=== PATIENT | female | born 1945 | race Caucasian/White ===

== ENCOUNTER → 2016-04-30 | Day surgery (SDC) | payer MEDICARE, OTHER ==
[~2016-04-30] MED LIST: ASCO10006 PO; ASPI325T70 PO; CALC-98 PO; CETI10CA PO; CLOP75TA27 PO; EPHEDRINE PF IN SALINE 50 MG/5 ML DISP.SYRIN. IV ONE; ESTR1TAB15 PO; FENTANYL PF 100 MCG/2 ML VIAL. IV PRN; HYDR12.53 PO; HYDROMORPHONE 2 MG/ML VIAL. IV PRN; IV RINGERS,LACTATED 1000ML 1,000 ML IV SCH; LABE100T3 PO; LEVO175T5 PO; LIDOCAINE 1% 1 ML SYRINGE. ID PRN; LIDOCAINE 2% PF Vial for OR 5 ML VIAL. ONE; LOVA20TA2 PO; MELO-150 PO; MORPHINE SULFATE 2 MG/ML DISP.SYRIN. IV PRN; NIAC500C6 PO; NIFE30TA2 PO; ONDANSETRON PF 4 MG/2 ML VIAL. IV PRN; PROCHLORPERAZINE 10 MG/2 ML VIAL. IV PRN; PROPOFOL 40 ML IV ONE; SUCR1TAB PO; VITA1CAP PO
[2016-04-30 08:05] VITALS: BP 144/77
--- NOTE | 2016-05-03 06:00 | HP ---
ADMIT DATE: 04/30/2016 REFERRING PHYSICIAN: Dr. Jr Strong. HISTORY OF PRESENT ILLNESS: This is a 70-year-old female whose past medical history is significant for hypertension, hypothyroidism, osteoarthrosis, history of colon polyps, asthma, seen for persistent diarrhea. She has been treated for C. diff. She still occasionally has loose frequent stools, which are nonbloody in nature. With continued symptoms, she requests additional evaluation. PAST MEDICAL HISTORY: Significant for hypertension, rheumatic fever, asthma, hypothyroidism. ALLERGIES: INCLUDE PENICILLIN, SULFA, CEPHALEXIN. MEDICATIONS: Include ascorbic acid, calcium, Zyrtec, Plavix, estradiol, hydrochlorothiazide, labetalol, levothyroxine, lovastatin, meloxicam, vitamin D. PAST SURGICAL HISTORY: She had joint replacement and hysterectomy. REVIEW OF SYSTEMS: Per records. PHYSICAL EXAMINATION: GENERAL: Reveals a well-nourished, well-developed female, who is alert and cooperative, in no acute distress. VITAL SIGNS: Afebrile, pulse is 75, respiratory rate is 18, blood pressure is 140/70. HEENT: Reveals normocephalic, atraumatic head. Pupils and extraocular muscles not tested. Sclerae anicteric. NECK: Supple. LUNGS: Clear. CARDIOVASCULAR: Reveals S1, S2 without S3, S4 or appreciable murmur. ABDOMEN: Reveals a soft abdomen with normal bowel sounds, without appreciable hepatosplenomegaly. EXTREMITIES: Reveals no cyanosis, clubbing or edema. IMPRESSION: Diarrhea with a history of colon polyps. Surveillance exam was recommended at this time. Risks and benefits of procedure including the risk of perforation have been discussed and the patient is willing to proceed at this time. I would like to thank Dr. Strong for allowing us to consult and participate in the patient's care. ENA MEDRANO MD DR: AGUSTÍN/josefina JOB#: [id number] / [id number] Dr. Jr Knutson
== END | disposition home or self-care (01) ==
LOC: ENDOS 05:58
PROVIDERS: ATTEND Internal Medicine Gastroenterology
DX: K64.1 Second degree hemorrhoids (principal); I10 Essential (primary) hypertension; J45.909 Unspecified asthma, uncomplicated; K21.9 Gastro-esophageal reflux disease without esophagitis; M19.90 Unspecified osteoarthritis, unspecified site; E03.9 Hypothyroidism, unspecified; E16.2 Hypoglycemia, unspecified; F41.9 Anxiety disorder, unspecified; D64.9 Anemia, unspecified; Z90.710 Acquired absence of both cervix and uterus; Z87.39 Personal history of other diseases of the musculoskeletal system and connective tissue; Z90.49 Acquired absence of other specified parts of digestive tract; Z87.891 Personal history of nicotine dependence
CPT/HCPCS: 45378; J2704

== ENCOUNTER → 2016-11-04 | Outpatient (CLI) | payer MEDICARE, OTHER ==
[2016-04-30 08:05] VITALS: BP 144/77
[~2016-11-04] MED LIST changes: +ASCO100020 PO; -ASCO10006 PO; -CLOP75TA27 PO; +CLOP75TA57 PO; -EPHEDRINE PF IN SALINE 50 MG/5 ML DISP.SYRIN. IV ONE; -FENTANYL PF 100 MCG/2 ML VIAL. IV PRN; -HYDROMORPHONE 2 MG/ML VIAL. IV PRN; -IV RINGERS,LACTATED 1000ML 1,000 ML IV SCH; -LIDOCAINE 1% 1 ML SYRINGE. ID PRN; -LIDOCAINE 2% PF Vial for OR 5 ML VIAL. ONE; -MELO-150 PO; +MELO15TA23 PO; -MORPHINE SULFATE 2 MG/ML DISP.SYRIN. IV PRN; -ONDANSETRON PF 4 MG/2 ML VIAL. IV PRN; -PROCHLORPERAZINE 10 MG/2 ML VIAL. IV PRN; -PROPOFOL 40 ML IV ONE
--- NOTE | 2016-11-10 15:11 | SLEEP ---
DATE OF STUDY: 11/04/2016 HOME SLEEP STUDY REFERRING PHYSICIAN: Dr. Jr Strong. The patient is 71 years old who weighs 159 pounds with a BMI of 30. The patient's Loraine score was 7. Home sleep study was performed by [facility]. Total recording time was 573 minutes. During the night study, the patient had no central apneas, 43 mixed apneas and 74 obstructive apneas. The patient's apnea-hypopnea index was 13 per hour, supine index 14 per hour. Review of nocturnal oximetry study revealed an average oxygen saturation of 94% with lowest of 86%. Only 1.2 minutes were spent in oxygen saturation less than 90%. IMPRESSION: 1. Mild sleep apnea-hypopnea syndrome with an apnea-hypopnea index of 13 per hour. RECOMMENDATIONS: 1. The patient will benefit from continuous positive airway pressure titration. Alternate treatment options would include oral appliance as recommended by the dentist. 2. Avoid [employer] depressants. 3. Caution regarding driving until symptoms of sleep apnea resolve with the above recommendations. RAFAEL DAS MD DR: DORIE/josefina JOB#: [id number] / [id number] RANDEE
== END | disposition home or self-care (01) ==
LOC: RT 08:11
PROVIDERS: ATTEND Physician Assistant Medical
DX: G47.33 Obstructive sleep apnea (adult) (pediatric) (principal)
CPT/HCPCS: G0399

== ENCOUNTER 2017-06-11 15:02 | Emergency (ER) | payer MEDICARE, OTHER ==
[2017-06-11] MEDS: HYDROcodone/APAP 5/325MG 1 TAB TABLET PO (15:59)
[2017-06-11] MEDS: DIPHTH,PERTUSS(ACELL),TET TOX 0.5 ML DISP.SYRIN. VAX IM (16:00)
== END 2017-06-11 16:06 | disposition home or self-care (01) ==
LOC: ER 16:06
DX: L03.317 Cellulitis of buttock (principal); L02.31 Cutaneous abscess of buttock; M19.90 Unspecified osteoarthritis, unspecified site; J45.909 Unspecified asthma, uncomplicated; K21.9 Gastro-esophageal reflux disease without esophagitis; I10 Essential (primary) hypertension; E03.9 Hypothyroidism, unspecified; Z96.643 Presence of artificial hip joint, bilateral; Z96.652 Presence of left artificial knee joint; Z88.1 Allergy status to other antibiotic agents; Z88.2 Allergy status to sulfonamides; Z88.0 Allergy status to penicillin; Z91.011 Allergy to milk products
CPT/HCPCS: 90471; 90715; 99283-25

== ENCOUNTER → 2017-08-05 | Outpatient (CLI) | payer MEDICARE | END | disposition home or self-care (01) | LOC: RT 18:27 | DX: G47.33 Obstructive sleep apnea (adult) (pediatric) (principal) | CPT/HCPCS: 95811 ==

== ENCOUNTER → 2017-10-19 | Outpatient (CLI) | payer MEDICARE ==
[2017-06-11 15:16] VITALS: BP 138/65
[~2017-10-19] MED LIST changes: +HYDR-971 PO; -LABE100T3 PO; +LABE100T5 PO; +LEVO500T59 PO
== END | disposition home or self-care (01) ==
LOC: EKG 09:16
PROVIDERS: ATTEND Physician Assistant Medical
DX: R00.2 Palpitations (principal); I10 Essential (primary) hypertension; E78.5 Hyperlipidemia, unspecified; E03.9 Hypothyroidism, unspecified; Z88.1 Allergy status to other antibiotic agents; Z86.2 Personal history of diseases of the blood and blood-forming organs and certain disorders involving the immune mechanism; Z96.652 Presence of left artificial knee joint; Z96.643 Presence of artificial hip joint, bilateral; Z87.891 Personal history of nicotine dependence; Z87.39 Personal history of other diseases of the musculoskeletal system and connective tissue; Z90.49 Acquired absence of other specified parts of digestive tract; Z90.710 Acquired absence of both cervix and uterus; Z91.011 Allergy to milk products; Z88.0 Allergy status to penicillin; Z88.2 Allergy status to sulfonamides; Z88.8 Allergy status to other drugs, medicaments and biological substances
CPT/HCPCS: 93225

== ENCOUNTER → 2018-04-14 | Outpatient (CLI) | payer MEDICARE ==
[2017-06-11 15:16] VITALS: BP 138/65
[~2018-04-14] MED LIST changes: +ALPR1TAB6 PO; +AMLO10TA8 PO; +CARV6.2511 PO; +CLOB15CR TP; +CYCL5TAB PO; +FLUT16SP NS; +FLUT9.9S NS; +GABA300C18 PO; +HYDR-3164 PO; -HYDR-971 PO; -HYDR12.53 PO; +HYDR12.575 PO; +LEVO125T5 PO; +MUPI22OI2 TP; +SPIR25TA5 PO
--- NOTE | 2018-04-14 21:09 | PAIN ---
DATE OF SERVICE: 04/14/2018 CHIEF COMPLAINT: Low back, bilateral lower extremity pain. HISTORY OF PRESENT ILLNESS: The patient is a 72-year-old female who presents with history of pain in the low back for about 4 years, into the lower extremities as well; radiating with walking, standing, changing positions; better with sitting or lying down. The patient reports pain is constant, sharp, stabbing, shooting, radiating; changes during the day; worse with activity, worse with standing; better with sitting or lying; but aching pain across the low back as well. The patient reports it awakens her from sleep about 2-3 times at night, can affect her bowel and bladder, but usually it is an urgency, not loss of continence. The patient reports it is difficult for her to walk and she is using a walker to ambulate at all times. The patient reports she has had physical therapy. She has had exercises that she is doing currently and she is currently doing some physical therapy, reports it has not decreased the pain to a significant extent. The patient did have MRI scan of the lumbar spine showing L3-L4 and L4-L5 with L3-L4 left foraminal and extraforaminal disk bulging and endplate osteophyte formation resulting in moderate narrowing of the inferior portion of the left neural foramen, mild right foraminal and extraforaminal disk bulging resulting in mild narrowing of the anterior inferior right neural foramen as well. The patient's L4-L5 shows moderate bilateral facet and ligamentum flavum hypertrophic changes, right foraminal and extraforaminal disk bulging resulting in moderate narrowing of the anterior inferior right neural foramen and left foraminal extraforaminal disk bulging resulting in mild narrowing of the anterior inferior left neural foramen. The patient rates her disability from 0-10, 10 being the worst as 9-10 with family and home responsibilities; 10 with recreation, social activity and occupation and 9 with self-care activities. The patient has tried Tylenol, which does decrease the pain; also is taking gabapentin 3 times a day, which decreases the pain to a mild extent, about 20% maybe on her estimation. The patient reports no loss of motor function, but significant fatigability of the bilateral lower extremities, right essentially equal to left with pain radiating into the lateral anterior thighs, anterior medial thighs, medial lower legs posterior calf and into the feet. PAST MEDICAL HISTORY: Significant for shortness of breath, hypertension, cardiovascular disease, headaches, incontinence in the past, arthritis, renal stents. PREVIOUS SURGERY: Include cataract extraction, renal stent placed in 2006, previous hysterectomy and a fatty cyst removed in 1965. CURRENT MEDICATIONS: Include calcium, vitamins, Zyrtec, Plavix, lovastatin, estradiol, hydrocodone, mupirocin, amlodipine, meloxicam, gabapentin, cyclobenzaprine, spironolactone, clobetasol, fluticasone, carvedilol, and Xanax. ALLERGIES: THE PATIENT IS ALLERGIC TO PENICILLIN, SULFA and KEFLEX and has DAIRY sensitivity. SOCIAL HISTORY: The patient does not drink alcohol; does not smoke; does not use any illegal, illicit or recreational drugs. She is , lives with her spouse; lives locally in [place], [place] and works as a daycare provider for infants. FAMILY HISTORY: Significant for diabetes, heart disease in her father and her sister and mother. REVIEW OF SYSTEMS: The patient's review of systems is positive for those items mentioned in history of present illness. All systems reviewed otherwise negative is complete, full and well documented on the patient's chart. PHYSICAL EXAMINATION: VITAL SIGNS: The patient's blood pressure is 138/101, pulse 74, respirations 18, temperature 97.6 degrees Fahrenheit, height is 5 feet, weight is 168 pounds. GENERAL: The patient is awake, alert, oriented, appropriate, very pleasant demeanor. HEENT: Shows normocephalic, atraumatic. Extraocular movements intact and symmetrical. Oral cavity: Mucous membranes moist and pink. Dentition is intact. NECK: Shows anterior throat supple without palpable lymphadenopathy noted. Swallow reflex is symmetrical. CHEST: Shows normal on inspection. Breath sounds are clear to auscultation bilaterally. HEART: Shows S1, S2 clear. No murmurs auscultated. ABDOMEN: Soft, obese, nontender, nondistended. No palpable organomegaly is noted. No rebound or guarding demonstrated. BACK: Shows spine grossly in the midline. Slight exaggeration of thoracic kyphosis, some minor flattening of lumbar lordotic curvature. Lumbar paraspinous muscle shows symmetrical on inspection; with palpation shows some moderate tenderness but diffusely in the upper, middle and lower distribution of the paraspinous muscles and equal bilaterally. No peripheral edema is noted. No atrophy, hypertrophy, no asymmetry. The patient has good rotational motion of lumbar spine, both laterally as well as extension and flexion without significant increase in pain. Lower extremities show deep tendon reflexes at 1+ in the patellar and tendo calcaneus tendons are equal. Motor exam is approximately 4 on a scale of 5, but symmetrical and strong with dorsiflexion, extension, quadriceps and hamstring flexion. Peripheral pulses are 1+ posterior tibia. No peripheral edema is noted in lower extremities. Lower extremities are warm and dry to touch, equal in color and appearance. Gaenslen's maneuvers and David's maneuvers are negative bilaterally as is straight leg raising bilaterally. The patient is able to stand, has difficulty rising from seated position as she is using a walker to ambulate. Does have a shuffling gait, does not appear to favor the right or left lower extremity significantly, but does have a shuffling gait with ambulation and again using a walker. The patient's skin shows warm and dry, good turgor. No edema. No sores, rashes or bruising. IMPRESSION: This is a 72-year-old female with: 1. Approximately 4-year history of low back pain, bilateral lower extremity pain in radicular fashion. 2. CT scan, lumbar scan, as noted. 3. Hypertension. 4. Shortness of breath with asthma. 5. Arthritis. PLAN: Options were discussed with the patient including conservative medical management, physical therapy, interventional techniques. She would like to proceed with interventional techniques. We will check with her prescribing physician regarding holding her Plavix for 7 days. If this is deemed safe and acceptable, we will have her hold this and then return for lumbar epidural steroid injection at that time. In the meantime, the patient will continue doing strengthening and stretching exercises that she can do with exercise as tolerated and we will wait for clearance on holding Plavix and if this is approved, we will proceed with lumbar epidural steroid injection at that time. TIANNA GEIGER MD DR: RONNELL/josefina JOB#: [id number] / [id number] DINORA Okeefe MD
== END | disposition home or self-care (01) ==
LOC: PNCL 08:29
PROVIDERS: ATTEND Anesthesiology
DX: M54.16 Radiculopathy, lumbar region (principal); M79.604 Pain in right leg; M79.605 Pain in left leg; I10 Essential (primary) hypertension; J45.909 Unspecified asthma, uncomplicated; M19.90 Unspecified osteoarthritis, unspecified site
CPT/HCPCS: G0463

== ENCOUNTER → 2018-04-26 | Outpatient (CLI) | payer MEDICARE ==
[2017-06-11 15:16] VITALS: BP 138/65
[~2018-04-26] MED LIST changes: +IOHEXOL 180 MG/ML 10 ML VIAL. ONE; +methylPREDNISolone ACETATE 40 MG/ML VIAL. ONE; +methylPREDNISolone ACETATE 80 MG/ML VIAL. ONE
--- NOTE | 2018-04-26 12:21 | PAIN ---
DATE OF SERVICE: 04/26/2018 PROGRESS NOTE FOR PAIN CLINIC DIAGNOSES: Lumbar radiculopathy with lumbar degenerative disk disease. HISTORY OF PRESENT ILLNESS: The patient is a 72-year-old female who returns for followup status post initial evaluation and clearance to hold her Plavix. She has acquired this, has been off it for over a week now with pain still in the low back and bilateral lower extremities as it was previously, posterior gluteus, posterolateral thigh, lateral anterior thigh, medial thighs, medial lower legs. The patient reports it is essentially unchanged, but again she has been off her Plavix, worse with standing, walking, changing positions, better with sitting or lying down, awakens her from sleep about every 6 hours. The patient rates the pain as a 10 on a scale of 10 at its worst, 9 on average and 8 at its least and is a 9 today. The patient reports it is shooting, cramping, radiating, becoming unbearable with standing and walking, again better with sitting or lying down. No new motor or sensory deficits, no new bowel or bladder incontinence. The patient is using a walker to ambulate at all times. PHYSICAL EXAMINATION: VITAL SIGNS: The patient's blood pressure is 125/79, pulse 75, respirations 18, temperature is 97.9 degrees Fahrenheit, height is 5 feet, weight is 166 pounds. GENERAL: The patient is awake, alert, oriented, appropriate, very pleasant demeanor. HEENT: Shows normocephalic, atraumatic. Extraocular movements are intact and symmetrical. Oral cavity shows mucous membranes are moist and pink. Dentition is intact. NECK: Shows anterior throat supple without palpable lymphadenopathy noted. Swallow reflex symmetrical. CHEST: Shows normal on inspection. Breath sounds clear to auscultation bilaterally. HEART: Shows S1, S2 clear. No murmurs auscultated. ABDOMEN: Soft, nontender, nondistended. No palpable organomegaly is noted. No rebound or guarding demonstrated. BACK: Shows spine grossly in the midline, normal appearing thoracic kyphosis, some minor flattening of lumbar lordotic curvature. Lumbar paraspinous muscle shows symmetrical on inspection, on palpation shows some moderate tenderness, but only diffusely without significant radiation. EXTREMITIES: The patient's lower extremities show deep tendon reflexes at 1+ in the patella and tendo calcaneus tendons. Motor exam is strong with 4 on a scale of 5, but equal and symmetrical on dorsiflexion, extension, quadriceps and hamstring flexion. Peripheral pulses are 1+. No peripheral edema is noted. PLAN: Options were discussed with the patient. The patient's old chart was reviewed as her current medication regimen updated. Current review of system is updated today as well. We will proceed with a lumbar epidural steroid injection today as she has been off her Plavix now for over a week. Risks were again discussed including, but not limited to bleeding, infection, possibility of epidural hematoma and subsequent neurologic compromise, dural puncture, headaches, spinal cord and/or nerve damage, side effects of steroid medication and poor results regarding pain control. The patient understands and wished to proceed. The patient will return to clinic in approximately 2 weeks for followup, was counseled as to return appointment, activity level and side effects to be aware of. DIAGNOSES: Lumbar radiculopathy with lumbar degenerative disk disease. PROCEDURE: Lumbar epidural steroid injection, translaminar approach at L4-L5 using C-arm fluoroscopic guidance under sterile prep and drape using local anesthetic. MEDICATION INJECTED: A total of 120 mg Depo-Medrol plus 10 mL of preservative-free normal saline and 2 mL of Isovue for contrast. CONDITION AT DISCHARGE: Stable. The patient tolerated the procedure well, had no complications. TIANNA GEIGER MD DR: RONNELL/josefina JOB#: [id number] / [id number]
== END | disposition home or self-care (01) ==
LOC: PNCL 08:56
PROVIDERS: ATTEND Anesthesiology
DX: M51.16 Intervertebral disc disorders with radiculopathy, lumbar region (principal); Z88.0 Allergy status to penicillin; Z88.2 Allergy status to sulfonamides; Z88.1 Allergy status to other antibiotic agents; Z91.011 Allergy to milk products
CPT/HCPCS: 62323; J1030; J1040; Q9965

== ENCOUNTER → 2018-05-22 | Outpatient (CLI) | payer MEDICARE ==
[2017-06-11 15:16] VITALS: BP 138/65
[~2018-05-22] MED LIST changes: +AZIT250T PO; +LEVO50TA5 PO
--- NOTE | 2018-05-22 14:29 | PAIN ---
DATE OF SERVICE: 05/22/2018 PROGRESS NOTE FOR PAIN CLINIC DIAGNOSIS: Lumbar radiculopathy with lumbar degenerative disk disease. HISTORY OF PRESENT ILLNESS: The patient is a 72-year-old female who returns for followup status post lumbar epidural steroid injection x 1. The patient reports she did very well with about a 50% improvement in the low back and primarily right greater than left lower extremity pain. She has been off her Plavix now for 7 days and would like to proceed with a second injection today as scheduled. The patient reports still increase in distance walking and doing better with changing positions, traveling in a car, doing household activities, sleeping better at night, but still occasionally it awakens her from sleep. The patient reports that her bowel and bladder control seemed to be better as well. The patient reports her pain is a 10 on a scale of 10 at its worst, average and an 8 at its least and is an 8 today. The patient reports it is cramping, sharp, tight, radiating into the lower extremities, again more on the right side in the lateral anterior thigh, anterior medial thigh, medial lower thigh and lower leg on the right side greater than the left, but present bilaterally. The patient reports no new motor or sensory deficits, no new bowel or bladder incontinence or other complaints. PHYSICAL EXAMINATION: VITAL SIGNS: The patient's blood pressure is 134/83, pulse 63, respirations 16, temperature is 98.2 degrees Fahrenheit. Weight is 172 pounds. GENERAL: The patient is awake, alert, oriented, appropriate, very pleasant demeanor. HEENT: Head shows normocephalic, atraumatic. Extraocular movements are intact and symmetrical. Oral cavity: Mucous membranes are moist and pink. Dentition is intact. NECK: Shows anterior throat supple without palpable lymphadenopathy noted. Swallow reflex is symmetrical. CHEST: Shows normal on inspection. Breath sounds are clear to auscultation bilaterally. HEART: Shows S1, S2 clear. No murmurs auscultated. ABDOMEN: Soft, nontender, nondistended. No palpable organomegaly is noted. No rebound or guarding demonstrated. BACK: Shows spine grossly in the midline. Normal appearing thoracic kyphosis and lumbar lordotic curvature. Lumbar paraspinous muscle shows symmetrical on inspection, on palpation shows some moderate tenderness diffusely in the low lumbar distribution, but only diffusely without radiation. EXTREMITIES: The patient's lower extremities show deep tendon reflexes at 1+ in the patellar and tendo calcaneus tendons are equal. Motor exam is strong with 4/5 dorsiflexion, extension as well as quadriceps and hamstring flexion and symmetrical. Peripheral pulses are 1+ posterior tibial. No peripheral edema is noted bilaterally. Options were discussed with the patient. The patient's old chart was reviewed as her current medication regimen updated. Current review of systems updated today as well. We will proceed with a second in the series of lumbar epidural steroid injection today with fluoroscopic guidance. Risks were again discussed including, but not limited to bleeding, infection, possibility of epidural hematoma, subsequent neurologic compromise, dural puncture, headaches, spinal cord and/or nerve damage, side effects of steroid medication and poor results regarding pain control. The patient understands and wished to proceed. The patient will return to the clinic in approximately 2 weeks for followup, was counseled on return appointment, activity level and side effects to be aware of. DIAGNOSIS: Lumbar radiculopathy with lumbar degenerative disk disease. PROCEDURE: Lumbar epidural steroid injection, translaminar approach at L4-L5 level using C-arm fluoroscopic guidance under sterile prep and drape using local anesthetic. MEDICATION INJECTED: A total of 120 mg Depo-Medrol plus 10 mL of preservative-free normal saline and 2 mL of Isovue for contrast. CONDITION AT DISCHARGE: Stable. The patient tolerated the procedure well, had no complications. TIANNA GEIGER MD DR: RONNELL/josefina JOB#: [id number] / [id number]
== END | disposition home or self-care (01) ==
LOC: PNCL 07:56
PROVIDERS: ATTEND Anesthesiology
DX: M51.16 Intervertebral disc disorders with radiculopathy, lumbar region (principal); Z88.0 Allergy status to penicillin; Z88.2 Allergy status to sulfonamides; Z88.1 Allergy status to other antibiotic agents; Z91.011 Allergy to milk products
CPT/HCPCS: 62323; J1030; J1040; Q9965

== ENCOUNTER 2018-06-04 15:54 | Emergency (ER) | payer MEDICARE ==
[~2018-06-04] VITALS: Ht 152.4 cm; Wt 76.2 kg
[~2018-06-04 15:54] MED LIST changes: -AZIT250T PO; -IOHEXOL 180 MG/ML 10 ML VIAL. ONE; -methylPREDNISolone ACETATE 40 MG/ML VIAL. ONE; -methylPREDNISolone ACETATE 80 MG/ML VIAL. ONE
[2018-06-04 16:00] VITALS: BP 150/93
[2018-06-04] MEDS ORDERED: AZIT250T PO (16:40)
--- NOTE | 2018-06-04 16:40 | PHYS DOC ---
Past Medical History Past Medical History: Arthritis, Asthma, GERD, Hypertension, Hypothyroid Additional Past Medical Histor: HYPERLIP.,OCCIPITAL NEURALGIA L SIDE, DJD, RENAL ART. STENOISIS,CPAP,PAIN Past Surgical History: Hip Replacement, Knee Replacement, Other Additional Past Surgical Histo: BILAT HIPS, LEFT KNEE Alcohol Use: None Drug Use: None Adult General Chief Complaint Chief Complaint: EARACHE/EAR PAIN [facility] Patient is a 72 year old female who presents to the emergency department with complaints of ear pain and sore throat started last night. 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 She denies any fever, cough, nausea, vomiting, diarrhea, abdominal pain, or difficulty hearing. She reports some sinus pressure and nasal congestion recently. Currently her pain is a 5/10 on the pain scale, there are no alleviating factors. Review of Systems Review of Systems Constitutional: Denies fever or chills [] Eyes: Denies changes HENT: See HPI Respiratory: Denies cough or shortness of breath [] Cardiovascular: No additional information not addressed in HPI [] GI: Denies abdominal pain, nausea, vomiting, or diarrhea [] Integument: Denies rash or skin lesions [] Neurologic: Denies headache Allergies Allergies Allergies Coded Allergies Type Severity Reaction Last Updated Verified Milk Containing Products Allergy Severe Shortness of Air 04/30/16 Yes Cephalexin Monohydrate Allergy Intermediate 04/30/16 Yes Penicillins Allergy Intermediate 04/30/16 Yes Sulfa (Sulfonamide Antibiotics) Allergy Intermediate 04/30/16 Yes Tetracyclines Allergy Intermediate 04/30/16 Yes Physical Exam Physical Exam Constitutional: Well developed, well nourished, no acute distress, non-toxic appearance. [] HENT: Normocephalic, atraumatic, bilateral external ears normal, left TM mild erythema with slight effusion, right TN normal, mild erythema of posterior pharynx, oropharynx moist, no oral exudates, nose normal. [] Eyes: conjunctiva normal, no discharge. [] Neck: Normal range of motion, no tenderness, supple, no stridor. [] Cardiovascular:Heart rate regular rhythm, no murmur [] Lungs & Thorax: Bilateral breath sounds clear to auscultation [] Skin: Warm, dry, no erythema, no rash. [] Neurologic: Alert and oriented X 3, no focal deficits noted. [] Psychologic: Affect normal, judgement normal, mood normal. [] EKG EKG [] Radiology/Procedures Radiology/Procedures [] Course & Med Decision Making Course & Med Decision Making Pertinent Labs and Imaging studies reviewed. (See chart for details) [] Dragon Disclaimer Dragon Disclaimer This electronic medical record was generated, in whole or in part, using a voice recognition dictation system. Departure Departure Impression: Primary Impression: Left otitis media with effusion Additional Impression: Sore throat Disposition: HOME, SELF-CARE Condition: STABLE Referrals: DINORA ANDREWS MD (PCP) Patient Instructions: Otitis Media, Adult, [id number] Additional Instructions: Fill prescription and take as directed. Tylenol as needed for pain. Follow up with your primary care doctor if symptoms persist, return to the ER if symptoms worsen. Scripts Azithromycin (ZITHROMAX) 250 Mg Tablet 1 PKG PO UD, #6 TAB 0 Refills Prov: MIGUELITO PRIETO APRN 06/04/18 Problem Qualifiers MIGUELITO PRIETO APRN Jun 04, 2018 16:40
== END 2018-06-04 16:49 | disposition home or self-care (01) ==
LOC: ER 15:54
DX: H65.92 Unspecified nonsuppurative otitis media, left ear (principal); J02.9 Acute pharyngitis, unspecified; I10 Essential (primary) hypertension; E03.9 Hypothyroidism, unspecified; K21.9 Gastro-esophageal reflux disease without esophagitis; J45.909 Unspecified asthma, uncomplicated; Z88.1 Allergy status to other antibiotic agents; Z88.0 Allergy status to penicillin; Z88.2 Allergy status to sulfonamides; Z91.011 Allergy to milk products
CPT/HCPCS: 87070; 99283

== ENCOUNTER → 2018-12-08 | Outpatient (CLI) | payer MEDICARE ==
[~2018-12-08] MED LIST changes: +AZIT250T PO; +IOHEXOL 240 MG/ML 50ML VIAL. PO ONE; +IOHEXOL 300 MG/ML 100ML VIAL. IV ONE
--- NOTE | 2018-12-08 17:04 | KCIC ---
Examination: CT ABD PELV W/ORAL IV CONTRAST History: Diffuse abdominal pain, changes in bowel habits Comparison/Correlation: None Findings: Axial images of the abdomen and pelvis were obtained following IV and oral contrast. Sagittal and coronal reformatted images were provided. Visualized lung bases are unremarkable other than a punctate nodule which is partially imaged at the right middle lobe in the subpleural location. Small hiatal hernia. Liver is unremarkable. Spleen is normal. Pancreas is unremarkable. The gallbladder is not identified. Right renal scarring is noted. Right renal lower pole cyst is present measuring up to 5.8 cm in diameter. No significant right collecting system distention. Lobular contour of the kidneys is notable. No left collecting system obstruction. Evaluation of the urinary bladder and ureterovesical junctions is very limited due to bilateral hip joint prostheses and significant associated streak artifact. No inflammatory changes about the cecum. No extraluminal gas. No bowel obstruction. No enlarged abdominal or pelvic lymph nodes. No ascites or pelvic free fluid. Marked calcific involvement of the abdominal aorta is evident. Bilateral main renal arterial stents are present. Calcific involvement of the origins of the celiac, superior mesenteric, and inferior mesenteric arteries is notable. Impression: No inflammatory findings identified to involve the bowel. Marked calcific involvement of the abdominal aorta and common iliac arteries. Fatty infiltration of the liver. PQRS Compliance Statement: One or more of the following individualized dose reduction techniques were utilized for this examination: 1. Automated exposure control 2. Adjustment of the mA and/or kV according to patient size 3. Use of iterative reconstruction technique Electronically signed by: Kyle Schneider MD (12/08/2018 5:01 PM) [facility]
== END | disposition home or self-care (01) ==
LOC: KCIC CT 09:19
PROVIDERS: ATTEND Internal Medicine Gastroenterology
DX: K44.9 Diaphragmatic hernia without obstruction or gangrene (principal); K76.0 Fatty (change of) liver, not elsewhere classified; N28.1 Cyst of kidney, acquired; R91.1 Solitary pulmonary nodule; I70.8 Atherosclerosis of other arteries; I70.0 Atherosclerosis of aorta; J45.909 Unspecified asthma, uncomplicated; I10 Essential (primary) hypertension; Z79.01 Long term (current) use of anticoagulants; Z87.891 Personal history of nicotine dependence; Z90.710 Acquired absence of both cervix and uterus
CPT/HCPCS: 74177; 82565; Q9966; Q9967

== ENCOUNTER → 2018-12-22 | Outpatient (CLI) | payer MEDICARE ==
[~2018-12-22] MED LIST changes: -IOHEXOL 240 MG/ML 50ML VIAL. PO ONE; -IOHEXOL 300 MG/ML 100ML VIAL. IV ONE
--- NOTE | 2018-12-22 08:25 | RAD ---
Examination: ABD PELVIS RETROPERITON DOPP History: Abdominal pain Comparison/Correlation: 12/08/2018 CT Abd and Pelvis with contrast Findings: Duplex abdominal ultrasound exam was performed. The proximal abdominal aortic peak systolic velocity is 84 cm/s. The mid to distal abdominal aorta is not visualized due to overlying bowel gas. Plaque is seen throughout the abdominal aorta, celiac artery, and superior mesenteric artery. Celiac artery peak systolic velocity of 363 cm/s is identified. Resistive index is 0.84. Superior mesenteric artery peak systolic velocity of 346 cm/s proximally is noted. Resistive index is 0.89. Mid superior mesenteric artery peak systolic velocity of 135 cm/s noted. Distal superior mesenteric artery peak systolic velocity of 126 cm/s identified. Inferior vena cava is only partially visualized and unremarkable. Hepatopedal hepatic arterial flow noted. 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 Significant calcific involvement of the abdominal aorta. Electronically signed by: Kyle Schneider MD (12/22/2018 8:22 AM) [facility]
== END | disposition home or self-care (01) ==
LOC: US 08:15
PROVIDERS: ATTEND Internal Medicine Gastroenterology
DX: K55.1 Chronic vascular disorders of intestine (principal); I70.0 Atherosclerosis of aorta; I77.4 Celiac artery compression syndrome
CPT/HCPCS: 76770

== ENCOUNTER → 2019-01-05 | Outpatient (CLI) | payer MEDICARE ==
--- NOTE | 2019-01-05 14:41 | RAD ---
MRI Lumbar Spine without contrast History: Spinal stenosis, intermittent claudication Technique: Multiplanar, multi sequential noncontrast MR imaging was performed of the lumbar spine. Comparison: None Findings: Lumbar vertebral body stature is maintained. There is negligible posterior subluxation L1 relative L2 and negligible anterior spondylolisthesis at L4-5. Conus terminates at L1-2. There is nonspecific mild edema of the posterior subcutaneous fat of the lower back. There is mild degenerative disc disease L1-2, L3-4, L4-5, mild disc desiccation at other levels. There is mild lumbar levoscoliosis. Not fully evaluated, there is a T2 hyperintense lesion of the right kidney at least 5 cm in size most likely a cyst. L1-L2: Neural foramina and the spinal canal are adequate. There is minimal facet degenerative change. L2-L3: This level was not included on the axial images. Neural foramina and spinal canal are adequate. L3-L4: There is negligible disc osteophyte complex. There is anterior annular tear. There is minimal facet degenerative change and buckling of the ligamentum flavum. Spinal canal is overall adequate. Neural foramina are adequate. L4-L5: There is moderate facet degenerative change, fluid in the facet articulations bilaterally. There is moderate buckling of the ligamentum flavum. There is negligible disc osteophyte complex. Combination of findings results in mild to moderate spinal stenosis, left greater than right lateral recess stenosis. There is some preserved subarachnoid space. There is very mild posterior narrowing of the left neural foramen, right neural foramen not significantly narrowed. L5-S1: Spinal canal and neural foramina are adequate. There is moderate right and mild left facet hypertrophic change and mild buckling of the ligamentum flavum. Impression: 1. There is mild to moderate spinal stenosis with left greater than right lateral recess stenosis at L4-5. There is mild narrowing of the left L4-5 neural foramen. There is mild degenerative disc disease greatest L1-2, L3-4, and L4-5. There is negligible anterior spondylolisthesis at L4-5 and negligible posterior subluxation L1 relative to L2. There is mild lumbar levoscoliosis. 2. Not fully evaluated, T2 hyperintense lesion of the right kidney is most likely a cyst. Electronically signed by: Richie Cronin MD (01/05/2019 2:38 PM) [facility]
== END | disposition home or self-care (01) ==
LOC: MRI 13:08
PROVIDERS: ATTEND Internal Medicine Gastroenterology
DX: M43.16 Spondylolisthesis, lumbar region (principal); M48.061 Spinal stenosis, lumbar region without neurogenic claudication; M51.36 Other intervertebral disc degeneration, lumbar region; M25.78 Osteophyte, vertebrae
CPT/HCPCS: 72148

== ENCOUNTER → 2019-02-07 | Outpatient (CLI) | payer MEDICARE ==
--- NOTE | 2019-02-07 13:20 | RAD ---
EXAM: Lumbar spine, flexion and extension; lumbar spine, single view. HISTORY: Pain. FINDINGS: Lateral neutral, flexion and extension views of the lumbar spine are obtained. There is minimal grade 1 anterolisthesis of L4 and L5 which increases with flexion, measuring approximately 5 mm. No additional listhesis is seen. There is mild endplate remodeling at multiple levels. There is slight disc space narrowing predominantly at L4-L5. There is facet arthropathy at multiple levels. There are bilateral hip arthroplasties. There are bilateral renal artery stents. There is aortic and aortic branch vessel atherosclerosis. Lateral neutral, flexion and extension views of the lumbar spine are obtained. There is minimal grade 1 anterolisthesis of L4 and L5 which increases with flexion, measuring approximately IMPRESSION: 1. Grade 1 anterolisthesis of L4 and L5 which increases with flexion. 2. Multilevel degenerative change, primarily at L4-L5. Electronically signed by: Mayela Louis MD (02/07/2019 1:17 PM) [id number]
== END | disposition home or self-care (01) ==
LOC: RAD 09:06
PROVIDERS: ATTEND Neurological Surgery
DX: M43.16 Spondylolisthesis, lumbar region (principal); M48.061 Spinal stenosis, lumbar region without neurogenic claudication; M47.816 Spondylosis without myelopathy or radiculopathy, lumbar region
CPT/HCPCS: 72020; 72120

== ENCOUNTER → 2019-04-10 | Outpatient (CLI) | payer MEDICARE ==
[~2019-04-10] MED LIST changes: +REGADENOSON 0.4 MG/5 ML DISP.SYRIN. IV ONE
--- NOTE | 2019-04-10 12:42 | CARD ---
MR#: [id number] Date of Study: 04/10/2019 Ordering Physician: CESAR WOMACK, Referring Physician: CESAR WOMACK, Tech: Bonnie Laughlin APPROVED REPORT EXAM: Two-dimensional and M-mode echocardiogram with Doppler and color Doppler. Other Information Quality : AverageHR: 59bpm INDICATION Pre-Op RISK FACTORS Hypertension 2D DIMENSIONS RVDd2.8 (2.9-3.5cm)Left Atrium(2D)3.8 (1.6-4.0cm) IVSd1.4 (0.7-1.1cm)Aortic Root(2D)3.0 (2.0-3.7cm) LVDd4.6 (3.9-5.9cm)LVOT Diameter2.0 (1.8-2.4cm) PWd1.2 (0.7-1.1cm)LVDs3.1 (2.5-4.0cm) FS (%) 32.6 %SV59.9 ml LVEF(%)61.0 (>50%) Aortic Valve AoV Peak Dilan.143.8cm/sAoV VTI36.4cm AO Peak GR.8.3mmHgLVOT Peak Dilan.74.6cm/s LVOT VTI 19.05cmAO Mean GR.5mmHg YAJAIRA (VMAX)1.90ls5OFL (VTI)1.71cm2 Mitral Valve MV E Zjtrqszs12.8cm/sMV DECEL HBDD127np MV A Etolkdrv351.2cm/sMV E Mean Gr.4mmHg MV OBW62siQ/A Ratio0.7 MVA (PHT)3.19cm2 TDI E/Lateral E'12.8E/Medial E'17.2 Pulmonary Valve PV Peak Slaprimg43.2cm/sPV Peak Grad.2mmHg Tricuspid Valve TR P. Rdcceowd195aw/sRAP GRBPSVXL3zvPz TR Peak Gr.17hqMeRGPP69vfJn Pulmonary Vein S1 Ikjgqekh87.3cm/sD2 Qfxqlrfe83.9cm/s PVa mizvudcu218mmev LEFT VENTRICLE The left ventricle is normal size. There is mild to moderate concentric left ventricular hypertrophy. The left ventricular systolic function is normal and the ejection fraction is within normal range. T he Ejection Fraction is 55-60%. There is normal LV segmental wall motion. Transmitral Doppler flow pa ttern is Grade I-abnormal relaxation pattern. RIGHT VENTRICLE The right ventricle is normal size. There is normal right ventricular wall thickness. The right ventr icular systolic function is normal. ATRIA The left atrium size is normal. The right atrium size is normal. The interatrial septum is intact wit h no evidence for an atrial septal defect or patent foramen ovale as noted on 2-D or Doppler imaging. AORTIC VALVE The aortic valve is normal in structure and function. Doppler and Color Flow revealed trace aortic re gurgitation. There is no significant aortic valvular stenosis. MITRAL VALVE The mitral valve is normal in structure and function. There is no evidence of mitral valve prolapse. There is no mitral valve stenosis. Doppler and Color-flow revealed trace mitral regurgitation. TRICUSPID VALVE The tricuspid valve is normal in structure and function. Doppler and Color Flow revealed trace tricus pid regurgitation with an estimated PAP of 20 mmHg. There is no tricuspid valve stenosis. PULMONIC VALVE The pulmonic valve is not well visualized. Doppler and Color Flow revealed trace pulmonic valvular re gurgitation. There is no pulmonic valvular stenosis. GREAT VESSELS The aortic root is normal in size. The ascending aorta is normal in size. The IVC is normal in size a nd collapses >50% with inspiration. PERICARDIAL EFFUSION There is no evidence of significant pericardial effusion. Critical Notification Critical Value: No <Conclusion> The left ventricular systolic function is normal and the ejection fraction is within normal range. Th e Ejection Fraction is 55-60%. There is normal LV segmental wall motion. Signed by : Rao Cook, Electronically Approved : 04/10/2019 12:41:50
--- NOTE | 2019-04-10 12:55 | RAD ---
MR#: [id number] Date of Study: 04/10/2019 Ordering Physician: CESAR WOMACK, Referring Physician: WHITNEY OREILLY Tech: MANAN Caro, ARRT (R) (N) APPROVED REPORT Test Type: Pharmacological Stress Nurse/Tech: Tyler Cline RN Test Indications: Pre-op clearance Cardiac History: HTN Medications: See Electronic Medical Record Medical History: See Electronic Medical Record Resting ECG: SR Resting Heart Rate: 60 bpm Resting Blood Pressure: 193/65mmHg Pretest Chest Pain: None Nurse/Tech Notes Lungs CTA, S1S2 Consent: The procedure was explained to the patient in lay terms. Informed consent was witnessed. Eugene eout was entered into Docin. History and Stress Test performed by RT Flor (R) (N) Pharm. Details Pharmacologic stress testing was performed using 0.4mg per 5ml of regadenoson given intravenously ove r 7-10 seconds. Stress Symptoms No chest pain or symptoms. POST EXERCISE Reason for Termination: Infusion complete Max HR: 82 bpm Max Blood Pressure: 189/82mmHg Blood Pressure response to exercise: Normal blood pressure response during stress. Heart Rate response to exercise: normal response Chest Pain: No. Arrhythmia: No. ST Change: No. INTERPRETATION Stress EKG Conclusion: No evidence of stress induced EKG changes. Imaging Protocol IMAGE PROTOCOL: Rest Tc-99m/stress Tc-99m 1 day Rest: Stress: Viability: Radiopharm.Tc99m YrtwevvwrKw31x Sestamibi Knfc21kGb 31mCi Img Date 04/10/2019 04/10/2019 Inj-Img Sxjd26wxb. 60min. Rest Admin Site:IV - Right AntecubitalAdministrator:RT Flor (R)(N) Stress Admin Site: IV - Right AntecubitalAdministrator: RT Flor (R)(N) STRESS DATA End Diast. Vol.84.0mlAv. Heart Rate58.0bpm End Syst. Vol.16.0mlCO Index BSA0.0L/min Myocardial Lvxg328.0gEject. Rpjxamjt64.0% Stress Rates Pk. Fill Rate2.15EDV/secLVtime Pk. Fill 114.87msec Pk. Empty Rate2.53ESV/secLVtime Pk. Czvju297.20msec /3 Pk. Fill1.56EDV/sec Stress Scores Regional WT1.00Summed WT6.00 Regional WM0.00Summed WM0.00 The rest and stress images show normal perfusion, normal contraction and thickening. LV Perf. Quant 17 Seg. SSS0.00 17 Seg. SRS0.00 17 Seg. SDS0.00 Stress Defect Extent (% LAD)0.00Rest Defect Extent (% LAD)0.00Rev. Defect Extent (% LAD)0.00 Stress Defect Extent (% LCX) 0.00Rest Defect Extent (% LCX)0.00Rev. Defect Extent (% LCX)0.00 Stress Defect Extent (% RCA)0.00Rest Defect Extent (% RCA)0.00Rev. Defect Extent (% RCA)0.00 Stress Defect Extent (% NAHOMY)0.00Rest Defect Extent (% NAHOMY)0.00Rev. Defect Extent (% NAHOMY)0.00 Other Information Quality:Good Risk Assessment: Low Risk Conclusion 1. No evidence of EKG changes with stress testing. 2. Normal perfusion at stress/rest. 3. Low risk study. 4. EF > 60%. Signed by : Rao Cook, Electronically Approved : 04/10/2019 12:55:01
== END | disposition home or self-care (01) ==
LOC: NM 08:32
PROVIDERS: ATTEND Internal Medicine Cardiovascular Disease
DX: Z01.810 Encounter for preprocedural cardiovascular examination (principal); I11.9 Hypertensive heart disease without heart failure
CPT/HCPCS: 78452; 93017; 93306; A9500; J2785

== ENCOUNTER → 2019-08-31 | Outpatient (CLI) | payer MEDICARE ==
[~2019-08-31] MED LIST changes: +ESTR-113 PO; -ESTR1TAB15 PO; -REGADENOSON 0.4 MG/5 ML DISP.SYRIN. IV ONE
--- NOTE | 2019-08-31 16:39 | RAD ---
MRI Lumbar Spine without contrast History: Sciatica, low back pain, right leg radiculopathy Technique: Multiplanar, multi sequential noncontrast MR imaging was performed of the lumbar spine. Comparison: January 05, 2019 Findings: Lumbar vertebral body stature is maintained. There is similar negligible posterior subluxation of L1 relative L2 and negligible anterior spondylolisthesis at L4-5. Conus terminates near L1-2. There is again mild degenerative disc disease at L1-2, L3-4, and L4-5. There is no new significant focal marrow edema. There is mild lumbar levoscoliosis. There is again T2 hyperintense lesion of the visualized right kidney about 6.3 cm transverse, most likely a cyst. Not included the axial images, there is some signal change in the left lateral recess near the T11-12 level which may be a component of synovial cyst as internally hyperintense on T2 and STIR sequence with probable degree of posterior left lateral recess stenosis. L1-L2: There is again mild facet degenerative change. There is mild indentation upon the ventral thecal sac greater in the right lateral recess by the minimally posteriorly subluxed L1 vertebral body margin somewhat greater, very mild narrowing of the far right lateral recess. Neural foramina are overall adequate. L2-L3: There is mild facet degenerative change. Spinal canal and neural foramina are adequate. L3-L4: There is mild buckling of the ligamentum flavum and facet degenerative change. There is negligible disc osteophyte complex. Neural foramina are overall adequate. There is very mild narrowing of the far right lateral recess. L4-L5: There is again moderate bilateral facet hypertrophic change with some fluid in the facet articulations. There is again moderate buckling of the ligamentum flavum. There is again very minimal disc osteophyte complex. There is overall moderate spinal stenosis with moderate to severe lateral recess stenosis bilaterally, degree of contact of the descending L5 nerve roots. Central canal is somewhat more narrowed below the intervertebral disc space on this exam. There is mild narrowing of left neural foramen, right neural foramen adequate. L5-S1: There is moderate right and mild left facet degenerative change. Spinal canal and neural foramina are overall adequate. Impression: 1. There is somewhat increased degree of overall moderate spinal stenosis with greater degree of lateral recess stenosis bilaterally at L4-5 with contact of the descending L5 nerve roots. There is again mild degenerative disc disease greatest L1-2, L3-4, and L4-5. There is minimal spondylosis. There is minimal narrowing of the left L4-5 neural foramen. 2. Poorly evaluated on this exam, there is some signal change in the left lateral recess at the T11-12 level which may be a synovial cyst associated with facet degenerative change, probably a degree of lateral recess stenosis from posteriorly. 3. There is again large T2 hyperintense lesion of the visualized right kidney, most likely a cyst. Electronically signed by: Richie Cronin MD (08/31/2019 4:36 PM) [id number]
== END ==
LOC: MRI 15:26
PROVIDERS: ATTEND Family Medicine
DX: M51.16 Intervertebral disc disorders with radiculopathy, lumbar region (principal); M47.817 Spondylosis without myelopathy or radiculopathy, lumbosacral region; M48.061 Spinal stenosis, lumbar region without neurogenic claudication; M25.78 Osteophyte, vertebrae
CPT/HCPCS: 72148

== ENCOUNTER → 2019-11-06 | Outpatient (CLI) | payer MEDICARE ==
--- NOTE | 2019-11-06 15:20 | RAD ---
MR#: [id number] Date of Study: 11/06/2019 Ordering Physician: CESAR WOMACK, Referring Physician: CESAR WOMACK, Tech: Louie Martinez MBA, RDMS, RVT, RDCS, RTR APPROVED REPORT Patient Location: OUT-PATIENT Indications Claudication:Bilaterally VELOCITY AND DOPPLER WAVEFORM ANALYSIS RIGHT cm/secWaveformSeverity LEFT cm/secWaveform Severity dCFA 161.0TriphasicdCFA 193.0Biphasic Prof Fem Art. 92.0BiphasicProf Fem Art. 94.0Biphasic Fem Art Prox. 181.0TriphasicFem Art Prox. 127.0Biphasic Fem Art Mid. 157.0TriphasicFem Art Mid. 138.0Biphasic Fem Art Dist. 125.0TriphasicFem Art Dist. 140.0Biphasic Pop Art(Fossa) 85.0TriphasicPop Art(AK) 66.0Biphasic WELFARE INVESTIGATOR Prox. 96.0MonophasicPTA Prox. 98.0Biphasic WELFARE INVESTIGATOR Dist. 103.0MonophasicPTA Dist. 95.0Biphasic Per Art Mid. 88.0BiphasicPer Art Mid. 99.0Biphasic TITI Prox. 135.0MonophasicATA Prox. 382.0Biphasic DPA 109MonophasicDPA 71Biphasic Findings Grayscale images of the bilateral lower extremity arterial vessels demonstrate moderate diffuse ather osclerotic plaque. On the right side no significant stenosis is evident from the [employer] O[employer] HELPER to the popliteal segment. Below th e knee there are monophasic waveforms in the posterior tibial and anterior tibial vessels. Probable moderate diffuse disease with three-vessel runoff. On the left side no significant stenosis is noted between the common femoral artery to the popliteal segment. Below the knee there is three-vessel runoff with likely greater than 75% stenosis involving the anterior tibial artery. Critical Notification Critical Value: No <Conclusion> 1. No significant right lower extremity arterial disease with three-vessel runoff 2. Probable greater than 75% stenosis involving the left anterior tibial artery otherwise no focal s tenosis identified on the left side Signed by : Rao Cook, Electronically Approved : 11/06/2019 15:19:32
== END | disposition home or self-care (01) ==
LOC: US 12:09
PROVIDERS: ATTEND Internal Medicine Cardiovascular Disease
DX: I70.203 Unspecified atherosclerosis of native arteries of extremities, bilateral legs (principal)
CPT/HCPCS: 93925